=== PATIENT | female | born 1995 | race Caucasian/White ===

== ENCOUNTER 2017-09-19 10:45 | Inpatient (IN) | payer MEDICAID ==
[~2017-09-19 10:45] MED LIST: OXYTOCIN 30 UNITS/LR 500 ML BAG IV
[2017-09-19] MEDS: LACTATED RINGER'S 1,000 ML IV ×2 (11:08→21:00)
[2017-09-19 11:24] LABS: ADD MAN DIFF? NO
[2017-09-19] MEDS ORDERED: CEFAZOLIN 2 GM/50 ML (PMX) 50 ML IVPB (11:24)
[2017-09-19 11:27] LABS: BASOPHILS % 0.3 % (0.0-2.0); EOSINOPHILS % 0.3 % (0.0-7.0); HEMATOCRIT 37.4 % (37.0-47.0); HEMOGLOBIN 12.8 g/dl (12.0-16.0); LYMPHOCYTES % 30.3 % (15.0-51.0); MEAN CORPUSCULAR HEMOGLOBIN 28.2 pg (29.0-33.0); MEAN CORPUSCULAR HGB CONC 34.2 g/dl (32.0-37.0); MEAN CORPUSCULAR VOLUME 82.4 fl (82.0-101.0); MEAN PLATELET VOLUME 12.7 fl (7.4-10.4); MONOCYTE # 0.2 10^3/ul (0.3-0.9); MONOCYTES % 6.5 % (0.0-11.0); NEUTROPHILS % 62.3 % (39.0-77.0); PLATELET COUNT 133 10^3/UL (140-415); RED BLOOD COUNT 4.54 10^6/ul (4.20-5.40); RED CELL DISTRIBUTION WIDTH 12.6 % (11.5-14.5)
[2017-09-19 11:27] LABS: WHITE BLOOD COUNT 3.2 10^3/ul (4.8-10.8)
[2017-09-19] MEDS ORDERED: OXYTOCIN 30 UNITS/LR 500 ML IV ×2 (11:30→18:30)
[2017-09-19] MEDS ORDERED: METHYLERGONOVINE 0.2 MG INJ IM ×2 (11:30→18:30)
[2017-09-19] MEDS ORDERED: CARBOPROST 250 MCG INJ IM ×2 (11:30→18:30)
[2017-09-19] MEDS ORDERED: MISOPROSTOL 200 MCG TAB PR ×2 (11:30→18:30)
[2017-09-19] MEDS ORDERED: METOCLOPRAMIDE 10 MG INJ ×2 (11:32→12:24)
[2017-09-19] MEDS ORDERED: CITRIC ACID/SODIUM CITRATE 15 ML CUP (11:32)
[2017-09-19] MEDS ORDERED: FAMOTIDINE 20 MG INJ (11:33)
[2017-09-19] MEDS ORDERED: ONDANSETRON 4 MG INJ (11:44)
[2017-09-19] MEDS ORDERED: morphine SULFATE/PF (10 MG/10 ML) INJ (11:44)
[2017-09-19] MEDS ORDERED: PHENYLephrine (100 MCG/ML) 5ML SYG ×2 (11:44→12:24)
[2017-09-19] MEDS ORDERED: OXYTOCIN 10 UNIT INJ (11:44)
[2017-09-19] MEDS ORDERED: BUPIVACAINE 0.75%/DEXT (SPINAL) 2 ML INJ (11:45)
[2017-09-19 11:49] LABS: INR 0.84; PROTIME 11.6 Sec (11.9-14.9); PT RATIO 0.9
[2017-09-19 11:50] LABS: PARTIAL THROMBOPLASTIN TIME 29.3 Sec (25.0-35.0)
[2017-09-19] MEDS: FAMOTIDINE 20 MG INJ IV (11:50)
[2017-09-19] MEDS: CITRIC ACID/SODIUM CITRATE 15 ML CUP PO (11:50)
[2017-09-19] MEDS: METOCLOPRAMIDE 10 MG INJ IV (11:50)
[2017-09-19] MEDS ORDERED: FENTAnyl 50 MCG/ML VIAL (12:22)
[2017-09-19 12:28] LABS: HEPATITIS B SURFACE ANTIGEN NEGATIVE (NEGATIVE)
[2017-09-19 12:48] LABS: CBV Base Excess -3.7 mmol/L; CBV COHb 0.8 %; CBV Oxygen Sat 42.5 mmHG; CBV Total Hemglobin 15.9 g/dl; Fraction OxyHgb Cord Venous 41.4 %; MODE ROOM AIR; MetHgb Cord Venous 1.9 %; Sample Type CBV; Site CORD
[2017-09-19] MEDS: CEFAZOLIN 2 GM/50 ML (PMX) 50 ML IV (13:11)
[2017-09-19] MEDS: OXYTOCIN 30 UNITS/LR 500 ML IV ×4 (13:17→23:45)
[2017-09-19] MEDS: DIPHENHYDRAMINE 50 MG INJ IV (15:19)
[2017-09-19] MEDS ORDERED: morphine 2 MG INJ IV (15:30)
[2017-09-19] MEDS ORDERED: NALOXONE (0.4 MG/ML) INJ IV (15:30)
[2017-09-19] MEDS: ONDANSETRON 4 MG INJ IV (15:32)
[2017-09-19] MEDS: KETOROLAC 30 MG INJ IV (18:37)
[2017-09-19] MEDS: SENNA/DOCUSATE NA (8.6MG/50MG) TAB PO (21:00)
[2017-09-19] MEDS: CEFAZOLIN 1 GM/50 ML (PMX) 50 ML IVPB (21:24)
[2017-09-19 22:34] LABS: RAPID PLASMA REAGIN NONREACTIVE (NR)
[2017-09-20] MEDS: OXYTOCIN 30 UNITS/LR 500 ML IV (04:09)
[2017-09-20 08:15] LABS: ADD MAN DIFF? NO
[2017-09-20 08:29] LABS: ABNORMAL IP MESSAGE 1; BASOPHILS % 0.2 % (0.0-2.0); EOSINOPHILS % 0.2 % (0.0-7.0); HEMATOCRIT 30.4 % (37.0-47.0); HEMOGLOBIN 10.4 g/dl (12.0-16.0); LYMPHOCYTES % 18.1 % (15.0-51.0); MEAN CORPUSCULAR HEMOGLOBIN 28.5 pg (29.0-33.0); MEAN CORPUSCULAR HGB CONC 34.2 g/dl (32.0-37.0); MEAN CORPUSCULAR VOLUME 83.3 fl (82.0-101.0); MEAN PLATELET VOLUME 11.8 fl (7.4-10.4); MONOCYTE # 0.4 10^3/ul (0.3-0.9); MONOCYTES % 7.5 % (0.0-11.0); NEUTROPHIL # 4.2 10^3/ul (1.6-7.5); NEUTROPHILS % 73.6 % (39.0-77.0); PLATELET COUNT 98 10^3/UL (140-415); RED BLOOD COUNT 3.65 10^6/ul (4.20-5.40); RED CELL DISTRIBUTION WIDTH 12.5 % (11.5-14.5)
[2017-09-20 08:29] LABS: WHITE BLOOD COUNT 5.6 10^3/ul (4.8-10.8)
[2017-09-20 08:39] LABS: POSITIVE DIFF @See below
[2017-09-20] MEDS: SENNA/DOCUSATE NA (8.6MG/50MG) TAB PO ×2 (09:00→21:07)
[2017-09-20] MEDS: KETOROLAC 30 MG INJ IV (10:40)
[2017-09-20] MEDS ORDERED: OXYCODONE/ACETAMINOPHEN (5/325) TAB PO (11:50)
[2017-09-20] MEDS ORDERED: HYDROCODONE/APAP (5/325) TAB PO ×2 (11:50)
[2017-09-20] MEDS: IBUPROFEN 600 MG TAB PO ×2 (12:00→18:03)
[2017-09-20] MEDS: LANOLIN 7 GM TUBE TOP (21:41)
[2017-09-20] MEDS: OXYCODONE/ACETAMINOPHEN (5/325) TAB PO (22:14)
[2017-09-21] MEDS: IBUPROFEN 600 MG TAB PO ×4 (02:17→18:00)
[2017-09-21] MEDS: SENNA/DOCUSATE NA (8.6MG/50MG) TAB PO ×3 (09:00→21:00)
[2017-09-21] MEDS: OXYCODONE/ACETAMINOPHEN (5/325) TAB PO ×2 (17:00→21:16)
[2017-09-21] MEDS: NA PHOSPHATE/BIPHOS 133 ML ENEMA PR (21:00)
[2017-09-22] MEDS: IBUPROFEN 600 MG TAB PO ×5 (08:25→23:35)
[2017-09-22] MEDS: OXYCODONE/ACETAMINOPHEN (5/325) TAB PO (08:46)
[2017-09-22] MEDS: SENNA/DOCUSATE NA (8.6MG/50MG) TAB PO ×2 (08:47→21:00)
[2017-09-22] MEDS: DIPHTH/TET/ACEL PERTUSS (ADULT) 0.5 ML VIAL IM* (09:00)
[2017-09-22] MEDS: LACTATED RINGER'S 500 ML IV (11:56)
[2017-09-22] MEDS: LACTATED RINGER'S 1,000 ML IV ×2 (13:00→17:58)
[2017-09-22] MEDS ORDERED: ONDANSETRON 4 MG INJ IV (16:00)
[2017-09-23] MEDS: LACTATED RINGER'S 1,000 ML IV (05:00)
[2017-09-23] MEDS: IBUPROFEN 600 MG TAB PO ×2 (05:53→12:18)
[2017-09-23] MEDS: SENNA/DOCUSATE NA (8.6MG/50MG) TAB PO (09:00)
== END 2017-09-23 13:05 | disposition home or self-care (01) | DRG 765 ==
LOC: OBT 10:45 → L-D 10:45 → OBT 11:09 → L-D 11:02 → PP1 17:36
PROVIDERS: Obstetrics & Gynecology
PROC: 10D00Z1 Extraction of Products of Conception, Low, Open Approach (ICD-10-PCS; principal; 2017-09-19 13:30)
DX: O69.1XX1 Labor and delivery complicated by cord around neck, with compression, fetus 1 (principal); O30.043 Twin pregnancy, dichorionic/diamniotic, third trimester; O24.429 Gestational diabetes mellitus in childbirth, unspecified control; Z3A.33 33 weeks gestation of pregnancy; Z37.2 Twins, both liveborn; G97.1 Other reaction to spinal and lumbar puncture; Y84.4 Aspiration of fluid as the cause of abnormal reaction of the patient, or of later complication, without mention of misadventure at the time of the procedure
CPT/HCPCS: 36415; 82803; 85025; 85610; 85730; 86592; 86850; 86900; 86901; 87340; 88307; 99464